=== PATIENT | female | born 1955 ===

== ENCOUNTER 2018-06-14 08:42 | Day surgery (SDC) | payer BC ==
[2018-06-09 09:19] VITALS: BMI 31.4
[2018-06-14 09:29] VITALS: PULSE 69; RESP 18; TEMP 97.9; O2SAT 98
[2018-06-14] MEDS ORDERED: Lidocaine/Epinephrine 1% 1:100000 10 ML IJ ONE (11:44)
[2018-06-14] MEDS ORDERED: Bupivacaine 0.25% 20 ML INJ IJ ONE (11:44)
[2018-06-14 12:49] VITALS: BP 126/79
--- NOTE | 2018-06-14 13:01 | PCM.SURG1 ---
Surgeon's Initial Post Op Note - Surgeon's Notes Surgeon: Dr. Garcia Coal Wheeler: Dr. Vicky Nash, PGY 1, Anastasia Santillan, MS3 Type of Anesthesia: Local Pre-Operative Diagnosis: Right shoulder lipoma Operative Findings: see operative note Post-Operative Diagnosis: same Operation Performed: lipoma excision Specimen/Specimens Removed: lipoma Estimated Blood Loss: EBL {In ML}: 4 Blood Products Given: N/A Drains Used: No Drains Post-Op Condition: Good Date of Surgery/Procedure: 06/14/18 Time of Surgery/Procedure: 11:30
--- NOTE | 2018-06-16 01:16 | OP ---
PROCEDURE DATE: 06/14/2018 PREOPERATIVE DIAGNOSIS: Lipoma on the right arm. POSTOPERATIVE DIAGNOSIS: Lipoma on the right arm. PROCEDURES DONE: 1. Excision of the lipoma on the right arm, 2 x 2 cm size. 2. Layered closure of the wound, 2 x 2 cm size. SURGEON: Greyson Garcia MD ANESTHESIA: Local anesthesia. ESTIMATED BLOOD LOSS: Around 10 mL. DRAINS: None. PATHOLOGY: Lipoma was sent to the Pathology. COMPLICATIONS: None. INTRAOPERATIVE FINDINGS: The patient had a lipoma of the right arm, approximately 2 x 2 cm size. DESCRIPTION OF PROCEDURE: On intraoperative steps, this is a 63-year-old female who was diagnosed with lipoma of the right arm. The patient was consented for the excision of the lipoma of the right arm, brought to the OR, and placed supine on the operating table. After prepping and draping the right arm, the local anesthesia was injected, and incision was made. Upper and lower flaps were created. Medial and lateral dissection was done. The dissection was carried down deep up to the underlying superficial fascia. The lipoma was completely excised, and it was sent off the table for the pathology. The wound was irrigated. Hemostasis was achieved. The wound was closed in multiple layers, the deep subcu with a 2-0 Vicryl and skin with a 4-0 Monocryl, and dry sterile dressing was applied. The patient tolerated the procedure well. Count of instrument and gauze was correct. There was no apparent complication. The patient was sent to the postanesthesia care unit in stable condition. Greyson Garcia MD
== END 2018-06-14 13:01 | disposition home or self-care (01) ==
LOC: C.SDS 08:42
PROVIDERS: ATTEND Surgery Surgical Critical Care
DX: D17.21 Benign lipomatous neoplasm of skin and subcutaneous tissue of right arm (principal)

== ENCOUNTER 2018-06-22 08:33 | Day surgery (SDC) | payer BC ==
[2018-06-09 09:19] VITALS: BMI 31.4
[2018-06-22 09:09] VITALS: RESP 20; TEMP 97.9
[2018-06-22] MEDS ORDERED: Lactated Ringer's 500 ML IV SCH (10:15)
[2018-06-22] MEDS ORDERED: Lactated Ringer's 500 ML IV ONE (10:30)
[2018-06-22] MEDS ORDERED: Propofol 10 mg/ml Inj (20 ML) ONE (10:31)
[2018-06-22] MEDS ORDERED: Lidocaine Hydrochloride 5 ML INJ ONE (10:31)
[2018-06-22 10:36] VITALS: PULSE 56; O2SAT 98
[2018-06-22 11:49] VITALS: BP 126/67
== END 2018-06-22 11:49 | disposition home or self-care (01) ==
LOC: C.ENDO 08:33
PROVIDERS: ATTEND Internal Medicine Gastroenterology
DX: Z12.11 Encounter for screening for malignant neoplasm of colon (principal); K64.8 Other hemorrhoids
CPT/HCPCS: 45378; J2704; J3010; J7120